=== PATIENT | female | born 1995 | race Caucasian/White ===

== ENCOUNTER 2016-02-14 13:43 | Emergency (ER) | payer SELFPAY ==
[~2016-02-14] VITALS: Ht 165.1 cm; Wt 52.0 kg
[~2016-02-14 13:43] MED LIST: MACR100C PO
[2016-02-14 13:45] VITALS: BP 117/67; PULSE 94; RESP 12; TEMP 98.2; O2SAT 96
[2016-02-14 14:27] LABS: BACTERIA, URINE RARE /hpf; BLOOD, URINE NEG (NEG); GLUCOSE,URINE NEG (NEG); KETONE, URINE NEG (NEG); MUCUS URINE FEW /lpf (OCC); NITRITE,URINE NEG (NEG); PH, URINE 7.5 (5.0-8.5); SQUAMOUS EPITHELIAL CELL URINE 2 /hpf (0-5); URINE COLOR LIGHT-YELLOW (YELLW/STRAW)
[2016-02-14 14:30] LABS: COMMENT (UR) CULT NOT INDICATED; CULTURE IF INDICATED CULT NOT INDICATED
== END 2016-02-14 15:15 | disposition left against medical advice (07) ==
LOC: NED 13:43
DX: N94.9 Unspecified condition associated with female genital organs and menstrual cycle (principal)
CPT/HCPCS: 81001; 84703; 99281

== ENCOUNTER 2016-10-21 23:23 | Emergency (ER) | payer MEDICAID ==
[~2016-10-21] VITALS: Ht 165.1 cm; Wt 55.0 kg
[2016-10-21 23:24] VITALS: BP 110/66; PULSE 92; RESP 15; TEMP 98; O2SAT 98
--- NOTE | 2016-10-21 23:42 | PD ---
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 She states her boyfriend was seen yesterday and was positive for urethritis. She has some mild vaginal itching. No discharge. Denies . Denies any abdominal pain or other symptoms. History Past Medical History Medical History: Denies Significant Hx LMP: 10/18/16 Social History Alcohol Use: No Tobacco Use: No Allergies-Medications (Allergen,Severity, Reaction): Coded Allergies: No Known Allergies (Verified , 10/21/16) Reported Meds & Prescriptions Reported Meds & Active Scripts Active Macrobid (Nitrofurantoin Macrocrystals) 100 Mg Cap 100 Mg PO BID 7 Days Review of Systems General / Constitutional: No: Fever, Chills Gastrointestinal: No: Nausea, Vomiting Genitourinary: No: Urgency, Frequency, Dysuria Physical Exam Narrative GENERAL: Well-appearing 20-year-old, no acute distress. SKIN: Warm and dry. CARDIOVASCULAR: Warm and well perfused. RESPIRATORY: Normal rate and effort. MUSCULOSKELETAL: No deformities. NEUROLOGICAL: Awake and alert. No gross deficits. Data Data Last Documented VS Vital Signs Date Time Temp Pulse Resp B/P (MAP) Pulse Ox O2 Delivery O2 Flow Rate FiO2 10/21/16 23:24 98.0 92 15 110/66 (81) 98 Room Air Orders Orders Azithromycin Powd Pack (Zithromax Powd P (10/21/16 23:45) Ceftriaxone Inj (Rocephin Inj) (10/21/16 23:45) Lidocaine 1% Inj (50 Ml) (Xylocaine 1% I (10/21/16 23:45) MDM Medical Decision Making Medical Screen Exam Complete: Yes Emergency Medical Condition: Yes Differential Diagnosis Cervicitis, urethritis, other Narrative Course Medical decision making 20-year-old with vaginal itching, boyfriend positive for chlamydia. Recommend empiric treatment. 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 Any sexual partners you have should be tested and treated as well. You should not have sex until you have no symptoms, and your partners tested and treated as well. Disposition: 01 DISCHARGE HOME Condition: Raul Zhang MD Oct 21, 2016 23:42
[2016-10-21] MEDS ORDERED: LIDOCAINE HCL 1% 50 ML VIAL IM ONE (23:45)
[2016-10-21] MEDS ORDERED: cefTRIAXone 250 MG VIAL IM ONE (23:45)
[2016-10-21] MEDS ORDERED: AZITHROMYCIN PWD FOR SUSP 1 GM PACKET PO ONE (23:45)
== END 2016-10-21 23:58 | disposition home or self-care (01) ==
LOC: NEPE 23:23
DX: N72 Inflammatory disease of cervix uteri (principal)
CPT/HCPCS: 96372; 99284; J0696

== ENCOUNTER 2016-11-14 19:15 | Emergency (ER) | payer OTHER ==
[~2016-11-14] VITALS: Ht 165.1 cm; Wt 57.0 kg
[2016-11-14 19:17] VITALS: BP 124/75; PULSE 89; RESP 15; TEMP 98.1; O2SAT 98
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
[2016-11-14 20:42] VITALS: BP 106/58; PULSE 87; RESP 18; O2SAT 99
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
[2016-11-14] MEDS ORDERED: ZOFR4TAB3 SL (21:55)
[2016-11-14 22:16] VITALS: BP 106/67; PULSE 100; RESP 18; O2SAT 100
== END 2016-11-14 22:18 | disposition home or self-care (01) ==
LOC: NEPC 19:15
DX: S09.8XXA Other specified injuries of head, initial encounter (principal); G44.309 Post-traumatic headache, unspecified, not intractable; V89.2XXA Person injured in unspecified motor-vehicle accident, traffic, initial encounter
CPT/HCPCS: 70450; 99284